=== PATIENT | female | born 1970 | race Caucasian/White ===

== ENCOUNTER 2016-10-19 14:26 | Inpatient (IN) | payer OTHER ==
[~2016-10-19] VITALS: Ht 162.6 cm; Wt 80.1 kg
[2016-10-19] MEDS ORDERED: DEXTROSE 50%, 50ML SYRINGE ONE (15:10)
[2016-10-19 15:12] LABS: BLOOD UREA NITROGEN 8 mg/dL (7-18)
[2016-10-19 15:23] LABS: ACETAMINOPHEN < 2 mcg/mL (10-30)
[2016-10-19] MEDS ORDERED: D5%-0.45% NACL 1,000 ML IV SCH ×2 (15:30→18:30)
[2016-10-19] MEDS ORDERED: DEXTROSE 50%, 50ML SYRINGE IVPush ONE ×3 (15:30→16:30)
[2016-10-19] MEDS ORDERED: AMOX1TAB64 PO (16:06)
[2016-10-19] MEDS ORDERED: DEXTROSE 10% 1,000 ML IV SCH (16:30)
[2016-10-19] MEDS ORDERED: DEXTROSE 50%, 50ML VIAL ONE (18:01)
[2016-10-19] MEDS ORDERED: SODIUM CHLORIDE 0.9% 1,000ML IVBOLUS ONE (19:00)
[2016-10-19] MEDS ORDERED: LORazepam 2 MG/ML, 1ML IVPush PRN (19:00)
[2016-10-19] MEDS ORDERED: DEXTROSE 50%, 50ML VIAL IVPush ONE (19:00)
[2016-10-19] MEDS ORDERED: DEXTROSE 10%, 1,000ML IV SCH (19:00)
[2016-10-19] MEDS ORDERED: ONDANSETRON 2MG/ML, 2ML ONE (20:00)
[2016-10-19] MEDS: THIAMINE 100MG TABLET PO SCH (20:11)
[2016-10-19] MEDS: ENOXAPARIN 40 MG/0.4 ML SQ SCH (20:11)
[2016-10-19] MEDS: FOLIC ACID 1 MG TABLET PO SCH (20:11)
[2016-10-19] MEDS: ONDANSETRON 2MG/ML, 2ML IVPush PRN (20:29)
[2016-10-19 21:47] LABS: DAU SCREEN DISCLAIMER
[2016-10-19] MEDS: FAMOTIDINE 20 MG TABLET PO SCH (21:47)
[2016-10-19 21:57] LABS: HCG UR OBC PASS
[2016-10-19] MEDS: DEXTROSE 10% 1,000 ML IV SCH (22:15)
[2016-10-20] MEDS: DEXTROSE 10% 1,000 ML IV SCH (03:49)
[2016-10-20] MEDS ORDERED: HYDROCORTISONE CRM 1%, 30GM TP PRN (04:30)
[2016-10-20 05:05] LABS: BLOOD UREA NITROGEN 5 mg/dL (7-18)
[2016-10-20] MEDS ORDERED: D5%-0.9% NACL 1,000 ML IV SCH (07:00)
[2016-10-20] MEDS: HYDROCORTISONE OINT 0.5%, 30GM TP PRN ×2 (07:20→08:33)
[2016-10-20] MEDS: FAMOTIDINE 20 MG TABLET PO SCH ×2 (08:33→21:39)
[2016-10-20] MEDS: FOLIC ACID 1 MG TABLET PO SCH ×2 (08:33→21:39)
[2016-10-20] MEDS: THIAMINE 100MG TABLET PO SCH (08:33)
[2016-10-20] MEDS ORDERED: MAGNESIUM SULFATE PMX 4GM/100M 100 ML IV ONE (09:00)
[2016-10-20] MEDS: ONDANSETRON 2MG/ML, 2ML IVPush PRN (09:17)
[2016-10-20] MEDS: TRIAMCINOLONE CRM 0.1%, 15GM TP SCH ×2 (15:36→21:41)
[2016-10-20] MEDS: GUAIFENESIN/COD200MG-20MG/10ML LIQUID PO PRN ×2 (17:13→20:47)
[2016-10-20] MEDS: NICOTINE 21 MG/24 HR PATCH.TD24 TD SCH (17:13)
[2016-10-20] MEDS: ENOXAPARIN 40 MG/0.4 ML SQ SCH (17:16)
[2016-10-20] MEDS ORDERED: D5%-0.9% NACL 1,000 ML IV PRN (20:30)
[2016-10-20] MEDS ORDERED: DEXTROSE 10% 1,000 ML IV PRN (20:30)
[2016-10-21] MEDS: ONDANSETRON 2MG/ML, 2ML IVPush PRN (04:07)
[2016-10-21] MEDS: GUAIFENESIN/COD200MG-20MG/10ML LIQUID PO PRN ×2 (04:18→21:34)
[2016-10-21 04:28] LABS: BLOOD UREA NITROGEN 4 mg/dL (7-18)
[2016-10-21] MEDS: TRIAMCINOLONE CRM 0.1%, 15GM TP SCH ×4 (06:45→21:10)
[2016-10-21] MEDS: THIAMINE 100MG TABLET PO SCH (10:09)
[2016-10-21 11:13] VITALS: BP 159/101
[2016-10-21] MEDS: ACETAMINOPHEN 325 MG TABLET PO PRN (14:15)
[2016-10-21] MEDS: NICOTINE 21 MG/24 HR PATCH.TD24 TD SCH (14:30)
[2016-10-21 18:33] VITALS: BP 157/95
[2016-10-21] MEDS: ENOXAPARIN 40 MG/0.4 ML SQ SCH (18:40)
[2016-10-22 01:36] VITALS: BP 140/78
[2016-10-22] MEDS: ACETAMINOPHEN 325 MG TABLET PO PRN ×2 (02:17→19:53)
[2016-10-22] MEDS: GUAIFENESIN/COD200MG-20MG/10ML LIQUID PO PRN (04:04)
[2016-10-22] MEDS: TRIAMCINOLONE CRM 0.1%, 15GM TP SCH ×2 (05:26→11:52)
[2016-10-22 08:09] VITALS: BP 132/89
[2016-10-22] MEDS: THIAMINE 100MG TABLET PO SCH (08:25)
[2016-10-22] MEDS: FOLIC ACID 1 MG TABLET PO SCH (08:25)
[2016-10-22 09:54] VITALS: BP 132/89
[2016-10-22] MEDS ORDERED: MOMETASONE FUROATE 0.1% TP SCH (13:00)
[2016-10-22] MEDS: NICOTINE 21 MG/24 HR PATCH.TD24 TD SCH (14:50)
[2016-10-22 15:59] VITALS: BP 134/93
[2016-10-22] MEDS ORDERED: ESCI10TA10 PO (17:26)
[2016-10-22] MEDS ORDERED: OMEP20TA62 PO (17:28)
[2016-10-22] MEDS: ENOXAPARIN 40 MG/0.4 ML SQ SCH (18:43)
[2016-10-22 19:40] VITALS: BP 145/93
== END 2016-10-22 21:22 | DRG 917 ==
LOC: ED 15:54 → EDIP 15:55 → CCU 17:21 → 3E 10-21 11:05 → 4WST 10-21 16:52 → 3E 10-22 15:33
PROVIDERS: ADMIT Hospitalist; ATTEND Family Medicine
DX: T38.3X2A Poisoning by insulin and oral hypoglycemic [antidiabetic] drugs, intentional self-harm, initial encounter (principal); G93.40 Encephalopathy, unspecified; F10.129 Alcohol abuse with intoxication, unspecified; F32.9 Major depressive disorder, single episode, unspecified; F41.9 Anxiety disorder, unspecified; L40.9 Psoriasis, unspecified; E16.0 Drug-induced hypoglycemia without coma; F17.210 Nicotine dependence, cigarettes, uncomplicated; Z98.84 Bariatric surgery status; Y92.89 Other specified places as the place of occurrence of the external cause; Z90.49 Acquired absence of other specified parts of digestive tract
CPT/HCPCS: 36415; 80048; 80307; 80329; 81025; 82040; 82962; 83735; 84703; 85025; 87081; 93005; 96361; 96374; 96376; J1650; J2405; J7042; G0480; J3475; J7030

== ENCOUNTER 2017-01-30 17:36 | Emergency (ER) | payer OTHER, MEDICAID ==
[~2017-01-30] VITALS: Ht 162.6 cm; Wt 67.8 kg
[~2017-01-30 17:36] MED LIST: AMOX1TAB64 PO; ESCI10TA10 PO; OMEP20TA62 PO
[2017-01-30 17:47] VITALS: BP 110/75
[2017-01-30] MEDS ORDERED: HYDROcodone/APAP 5/325 TABLET PO ONE (18:00)
[2017-01-30] MEDS ORDERED: HYDROcodone/APAP 5/325 TABLET ONE (18:03)
== END 2017-01-30 19:29 | disposition home or self-care (01) ==
LOC: ED 19:23
DX: S43.402A Unspecified sprain of left shoulder joint, initial encounter (principal); F31.9 Bipolar disorder, unspecified; F90.9 Attention-deficit hyperactivity disorder, unspecified type; I10 Essential (primary) hypertension; F17.200 Nicotine dependence, unspecified, uncomplicated; V19.9XXA Pedal cyclist (driver) (passenger) injured in unspecified traffic accident, initial encounter; Y93.55 Activity, bike riding; Y92.410 Unspecified street and highway as the place of occurrence of the external cause; Y99.8 Other external cause status
CPT/HCPCS: 72050; 93005; 99284